=== PATIENT | male | born 1975 | race Caucasian/White ===

== ENCOUNTER 2019-06-07 14:42 | Emergency (ER) | payer BC, OTHER, SELFPAY ==
[~2019-06-07 14:42] MED LIST: ISOVUE-370 76%-LOCM 1 ML ONE
[2019-06-07] MEDS ORDERED: Morphine 4 MG/ML VIAL ONE (14:53)
--- NOTE | 2019-06-07 15:20 | CT ---
CT THORAX WITH CONTRAST CT ABDOMEN WITH CONTRAST CT PELVIS WITH CONTRAST CT THORACIC SPINE WITH CONTRAST CT LUMBAR SPINE WITH CONTRAST: (Trauma protocol) DATE: 06/07/2019 HISTORY: Trauma to the chest, abdomen, and pelvis Dr. Wright gave this level 2 trauma report by telephone to Dr. Giordano contusion at 3:13 PM on power [employer] be today. The left lower lobe pulmonary nodule was mentioned, six-month follow-up recommended. TECHNIQUE: IV administration of iodinated contrast media. No oral contrast media. Single phase scans of thorax, abdomen, and pelvis. Sagittal reconstructions of thoracic and lumbar spine. FINDINGS: Lungs: No contusion. Benign intrapulmonary lymph node in anterior segment of right upper lobe abuttin g right minor fissure. In the left lower lobe there is a 5 x 4 mm noncalcified pulmonary nodule close to the posterolateral pleural surface, nonspecific. Pleura: No pneumothorax or hemothorax. Thoracic aorta: No dissection or rupture. Mediastinum: No hematoma. Abdomen and pelvis: Liver: No laceration Spleen: No laceration Pancreas: No surrounding fluid or fat stranding. Kidneys: No hydronephrosis or laceration. Bladder: No gross evidence of rupture. Abdominal aorta: No dissection or rupture. Small bowel: No dilation. Colon: No adjacent fat stranding. Free air: None. Free fluid: None. Skeleton: Ribs: No grossly displaced acute fracture. Sternum: No grossly displaced acute fracture. Thoracic spine: No acute compression fracture. Lumbar spine: No acute compression fracture. Pelvis: No grossly displaced acute fracture. No dislocation. IMPRESSION: 1. No evidence of acute traumatic injury within the thorax, abdomen, or pelvis. 2. A 5 mm left lower lobe pulmonary nodule. Recommend 6 month follow-up chest CT.
--- NOTE | 2019-06-07 15:31 | CT ---
BRAIN CT WITHOUT IV CONTRAST: Date: 06/07/19 HISTORY: Injury from trauma, horse ejection, thrown from horse. FINDINGS: No focal mass or midline shift. No intra or extra-axial hemorrhage. Sinuses and mastoids are clear of acute process. IMPRESSION: No significant acute intracranial process. No mass or bleed. POS: [facility]
--- NOTE | 2019-06-07 15:42 | RAD ---
RIGHT SHOULDER 3 VIEWS: Date: 06/07/19 HISTORY: Fall off horse, right shoulder pain. FINDINGS/IMPRESSION: No acute fracture or dislocation is identified. POS: [facility]
--- NOTE | 2019-06-07 15:43 | CT ---
CERVICAL SPINE CT WITHOUT IV CONTRAST: Date: 06/07/19 HISTORY: Injury from trauma, fell off horse. 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 No acute fracture or facet dislocation. IMPRESSION: Unremarkable cervical spine CT. No fracture, dislocation, or other acute process. POS: [facility]
== END 2019-06-07 15:45 | disposition home or self-care (01) ==
LOC: ERS 14:42
DX: S00.03XA Contusion of scalp, initial encounter (principal); S40.011A Contusion of right shoulder, initial encounter; R91.1 Solitary pulmonary nodule; V80.010A Animal-rider injured by fall from or being thrown from horse in noncollision accident, initial encounter
CPT/HCPCS: 70450; 71260; 72125; 74177; 96374; G0390; J2270; Q9966

== ENCOUNTER 2019-06-07 19:38 | Emergency (ER) | payer OTHER, SELFPAY | END 2019-06-07 20:05 | disposition home or self-care (01) | LOC: ERS 19:38 | DX: M25.511 Pain in right shoulder (principal); V80.010A Animal-rider injured by fall from or being thrown from horse in noncollision accident, initial encounter | CPT/HCPCS: 99283 ==